=== PATIENT | male | born 1950 | race Caucasian/White ===

== ENCOUNTER 2024-10-16 06:23 | Day surgery (SDC) | payer OTHER, SELFPAY ==
[2024-10-16] VITALS (10 sets, daily range): BP systolic 118–146; BP diastolic 75–99; BMI 25.9
[2024-10-16] MEDS: LOW STRENGTH ASPIRIN 324 MG PO (07:17)
[2024-10-16 09:05] LABS: ACT-LR - POC 232 Seconds (116-155)
[2024-10-16 09:17] LABS: ACT-LR - POC 256 Seconds (116-155)
[2024-10-16 09:48] LABS: ACT-LR - POC 360 Seconds (116-155)
[2024-10-16] MEDS: NSS 1000 IV (10:56)
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
== END 2024-10-16 15:46 | disposition home or self-care (01) ==
LOC: CATH 06:23
PROVIDERS: ATTENDING PHYSICIAN Internal Medicine Interventional Cardiology; FAMILY PHYSICIAN Family Medicine; OTHER PHYSICIAN Internal Medicine Cardiovascular Disease
DX: I25.10 Atherosclerotic heart disease of native coronary artery without angina pectoris (principal); Z86.73 Personal history of transient ischemic attack (TIA), and cerebral infarction without residual deficits; E78.2 Mixed hyperlipidemia; I10 Essential (primary) hypertension; R55 Syncope and collapse; Z79.02 Long term (current) use of antithrombotics/antiplatelets; Z79.82 Long term (current) use of aspirin
CPT/HCPCS: 99152; 99153; 92978; 93799; 85347; 93458; C1753; C1769; C1894; Q9967

== ENCOUNTER 2024-11-21 10:55 | Day surgery (SDC) | payer OTHER, SELFPAY ==
[2024-11-21] VITALS (18 sets, daily range): BP systolic 106–153; BP diastolic 71–93; BMI 27.9
[2024-11-21 11:18] LABS: Hematocrit 42.8 % (39.0-52.0); Hemoglobin 14.3 g/dL (13.0-18.0); Mean Corp Hgb Conc. 33.4 g/dL (33.0-37.0); Mean Corpuscular Hgb 30.3 pg (27.0-31.0); Mean Corpuscular Volume 90.7 fL (80.0-94.0); Mean Platelet Volume 9.9 fL (7.4-10.4); Platelet Count 223 10^3/uL (130-400); Red Blood Cell Count 4.72 10^6/uL (4.70-6.10); Red Cell Dist. Width 12.6 % (11.5-14.5); White Blood Cell Count 7.1 10^3/uL (4.8-10.8)
[2024-11-21 11:26] LABS: Blood Urea Nitrogen 12 mg/dl (9-20); Calcium 9.9 mg/dl (8.4-10.2); Carbon Dioxide 28 mmol/L (22-30); Chloride 106 mmol/L (98-107); Glucose 111 mg/dl (70-99); Potassium 5.5 mmol/L (3.5-5.1); Sodium 140 mmol/L (135-145); eGFR > 60.00
--- NOTE | 2024-11-21 13:16 | W.PN.UPDATE ---
Update Note
Progress Note Update
Initially stopped by around 11 AM to concern the patient with his at bedside for scheduled PCI to mid RCA. The wanted me to give reassurance that all of the plaque from patient's arteries would be 'sucked using 'Roto-rooter' I proceeded
to explain to her that similar to our discussion after diagnostic heart catheterization that the obstructive stenosis did not appear significantly calcified so we would pursue this as we would any other case by initially ballooning to ensure we are
getting expansion of the lesion and proceed with stenting if no other unforeseeable issues, and usually reserved atherectomy for heavily calcified lesions to modify calcification as need be. Patient's got extremely annoyed at the fact that we
would not be using the Roto-Rooter and that I could not provide assurance that all of the plaque would be sucked out. She then questioned on why the nonobstructive lesion in the left circumflex was not being treated with PCI. I explained to her
again just like we did after the prior diagnostic heart catheterization that physiologic testing did not suggest obstructive stenosis and that we generally treat moderate CAD with medications with focus on optimizing cardiovascular risk factors
including using medications like statins to stabilize plaque. She became extremely concerned and claimed that they would not want higher doses of statins if need be given her understanding is that statins cause dementia and Alzheimer's. I
proceeded to explain to her that we do not have any evidence that statins increased risk for dementia or Alzheimer's. I explained the procedural risk and benefits in significant detail to them and also offered alternatives such as seeking a second
opinion elsewhere given she tells me that at prior institutions she was told that patient may need a 'roto-rooter' despite patient having his diagnostic heart catheterization here a few weeks ago at [facility]. I let them know with nursing
at bedside as a witness that we would allow them some time to think through everything before deciding to proceed and I strongly encouraged they seek a second opinion elsewhere given their concerns. I explained to them that my practice is not to
put patients at higher risk by using atherectomy when it may not be indicated.
I will cycle back after my next case to address any further questions or concerns and assess if they would like to obtain a second opinion elsewhere in which case we would cancel her case here today.
On separate note, patient has been on Plavix over the last 3 to 4 weeks and tolerating this well denying any new neurologic symptoms. No hematuria or hematochezia noted. He does bruise easily.
Outpatient chief business officer, Dr. Rafael Tidwell, also notified about all of the above.
Kathy Cordero MD, FACC, [facility]
[2024-11-21] MEDS: NSS 228 ML IV (13:47)
[2024-11-21] MEDS: PLAVIX 75 MG PO (13:48)
[2024-11-21] MEDS: LOW STRENGTH ASPIRIN 81 MG PO (13:49)
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
--- NOTE | 2024-11-21 18:43 | W.PN.UPDATE ---
Update Note
Progress Note Update
Pt seen post RCA PCI. Right radial cath site without ht/bleeding. OOB ambulating. Post EKG NSR w/RBBB and PVCs as before, 70s, no acute changes. Understands importance of uninterrupted DAPT w/asa, plavix. Cardiac rehab consulted. Followup with
Diann as scheduled. Home later today if cath site/tele remain stable.
[2024-11-22 08:00] LABS: ACT-LR - POC 347 Seconds (116-155)
== END 2024-11-21 19:32 | disposition home or self-care (01) ==
LOC: CATH 10:55
PROVIDERS: ATTENDING PHYSICIAN Internal Medicine Interventional Cardiology; FAMILY PHYSICIAN Family Medicine; OTHER PHYSICIAN Internal Medicine Cardiovascular Disease
DX: I25.10 Atherosclerotic heart disease of native coronary artery without angina pectoris (principal); E78.2 Mixed hyperlipidemia; I10 Essential (primary) hypertension; I49.3 Ventricular premature depolarization; I45.10 Unspecified right bundle-branch block; Z86.73 Personal history of transient ischemic attack (TIA), and cerebral infarction without residual deficits; Z79.02 Long term (current) use of antithrombotics/antiplatelets
CPT/HCPCS: 92978; 99152; 99153; 37215; 80048; 85027; 85347; 93005; 93452; 93458; C1725; C1769; C1874; C1894; C9600; Q9967

== ENCOUNTER 2024-12-29 03:19 | Inpatient (IN) | payer OTHER, SELFPAY ==
[2024-12-28 20:57] VITALS: BP 115/97
[2024-12-28 21:40] LABS: % Basophils 0.3 % (0-2); % Eosinophils 3.4 % (0-6); % Immature Granulocytes 0.3 % (0-0.5); % Lymphocytes 6.7 % (20.5-51.1); % Monocytes 8.7 % (1.7-9.3); % Neutrophils 80.6 % (42.2-75.2); Absolute Eosinophils 0.3 10^3/uL (0-0.7); Absolute Lymphocytes 0.6 10^3/uL (1.2-3.4); Absolute Monocytes 0.8 10^3/uL (0.1-0.6); Absolute Neutrophils 7.8 10^3/uL (1.4-6.5); Hematocrit 41.9 % (39.0-52.0); Hemoglobin 14.5 g/dL (13.0-18.0); Mean Corp Hgb Conc. 34.6 g/dL (33.0-37.0); Mean Corpuscular Hgb 30.5 pg (27.0-31.0); Mean Platelet Volume 9.6 fL (7.4-10.4); Nucleated Red Blood Cells % 0 % (-); Platelet Count 196 10^3/uL (130-400); Red Blood Cell Count 4.76 10^6/uL (4.70-6.10); Red Cell Dist. Width 12.4 % (11.5-14.5); White Blood Cell Count 9.6 10^3/uL (4.8-10.8)
[2024-12-28 21:55] LABS: Lactic Acid 1.3 mmol/L (0.7-2.0)
[2024-12-28 21:58] LABS: ALT (SGPT) 16 U/L (0-50); AST (SGOT) 23 U/L (17-59); Albumin 4.9 g/dl (3.5-5.0); Alkaline Phosphatase 78 U/L (38-126); Blood Urea Nitrogen 22 mg/dl (9-20); Calcium 10.3 mg/dl (8.4-10.2); Carbon Dioxide 27 mmol/L (22-30); Chloride 101 mmol/L (98-107); Glucose 142 mg/dl (70-99); Potassium 4.6 mmol/L (3.5-5.1); Sodium 137 mmol/L (135-145); Total Bilirubin 1.1 mg/dl (0.2-1.3); Total Protein 8.1 g/dl (6.3-8.2); eGFR > 60.00
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
[2024-12-28 22:25] VITALS: BMI 27.2
[2024-12-28 22:42] VITALS: BP 117/83
[2024-12-28 23:14] VITALS: BP 124/72
[2024-12-29] VITALS (8 sets, daily range): BP systolic 121–145; BP diastolic 79–95; PULSE 75; O2SAT 98; BMI 26.2
[2024-12-29 00:54] LABS: Urine Albumin 2+ (Neg - Trace); Urine Bilirubin 1+ (Negative); Urine Character Clear (Clear); Urine Color Amber; Urine Glucose Negative (Negative); Urine Ketone 3+ (Negative); Urine Leukocyte Negative (Negative); Urine Nitrite Negative (Negative); Urine Occult Blood 1+ (Negative); Urine Urobilinogen 1+ (Neg - 1+)
[2024-12-29 01:15] LABS: Urine Mucus Moderate
[2024-12-29 01:17] LABS: Urine Bacteria Few (Negative)
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
[2024-12-29 03:02] LABS: COVID-19 Antigen Negative (Negative)
[2024-12-29 04:20] LABS: Alcohol None Detected
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
[2024-12-29 08:38] LABS: Hematocrit 41.6 % (39.0-52.0); Hemoglobin 14.3 g/dL (13.0-18.0); Mean Corp Hgb Conc. 34.4 g/dL (33.0-37.0); Mean Corpuscular Hgb 30.5 pg (27.0-31.0); Mean Corpuscular Volume 88.7 fL (80.0-94.0); Mean Platelet Volume 10.4 fL (7.4-10.4); Platelet Count 196 10^3/uL (130-400); Red Blood Cell Count 4.69 10^6/uL (4.70-6.10); Red Cell Dist. Width 12.5 % (11.5-14.5); White Blood Cell Count 7.1 10^3/uL (4.8-10.8)
[2024-12-29] MEDS: LOW STRENGTH ASPIRIN 81 MG PO (08:41)
[2024-12-29] MEDS: TOPROL XL 25 MG PO (08:42)
[2024-12-29] MEDS: CRESTOR 20 MG PO (08:42)
[2024-12-29] MEDS: PLAVIX 75 MG PO (08:42)
[2024-12-29] MEDS: NEURONTIN 300 MG PO (08:42)
[2024-12-29 08:53] LABS: ALT (SGPT) 14 U/L (0-50); AST (SGOT) 24 U/L (17-59); Albumin 4.6 g/dl (3.5-5.0); Alkaline Phosphatase 77 U/L (38-126); Blood Urea Nitrogen 22 mg/dl (9-20); Calcium 9.7 mg/dl (8.4-10.2); Carbon Dioxide 24 mmol/L (22-30); Chloride 104 mmol/L (98-107); Direct Bilirubin 0.5 mg/dl (0.0-0.4); Estimated Creatinine Clearance 71 ml/min; Glucose 95 mg/dl (70-99); HDL Cholesterol 64 mg/dl; LDL Cholesterol, Calculated 60 mg/dl; Potassium 4.2 mmol/L (3.5-5.1); Sodium 138 mmol/L (135-145); Total Bilirubin 1.1 mg/dl (0.2-1.3); Total Cholesterol 143 mg/dl (50-199); Total Protein 7.4 g/dl (6.3-8.2); Triglyceride 95 mg/dl (10-149); Very Low Density Lipoprotein 19 mg/dl (0-30); eGFR > 60.00
[2024-12-29 10:25] LABS: Glycohemoglobin (HgbA1c) 5.6 % (4.0-5.6)
--- NOTE | 2024-12-29 11:47 | CM ---
Patient seen at bedside with on . Patient states that they have been in several hospitals and Patient indicated that patient currently has pending bills and she would like to talk to the billing office about payment plans.
Patient indicated that they were struggling with bills and CM indicated that information would be provided re; [email or web address]. Patient indicated that patient did not want help on alcohol resources and patient wanted to have his 2 shots per
night. Patient indicated that his PCP is Dr. LIND and that he uses the [facility] in [place] now for short term medications. Patient and live in a split level home and patient has no DME. CM will continue to follow for discharge planning
needs.
Plan; home with VN vs SNF pending medical treatment plan
[2024-12-29] MEDS: LIDOCAINE 4% PATCH 1 PATCH TOPICAL (13:23)
[2024-12-29] MEDS: NSS 1000 IV (13:24)
[2024-12-29] MEDS: ATIVAN 1 MG IV (13:52)
[2024-12-29 14:36] LABS: TSH 1.44 uIU/ml (0.47-4.68)
[2024-12-29 14:55] LABS: Vitamin B12 564 pg/ml (239-931)
[2024-12-29] MEDS: NSS (PRESERVATIVE FREE) 10 ML IV (16:36)
[2024-12-29] MEDS: PROTONIX IV 40 MG IV (16:37)
[2024-12-29] MEDS: MELATONIN PO ×2 (21:03→21:04)
[2024-12-29] MEDS: NEURONTIN PO ×2 (21:04)
[2024-12-30] VITALS (8 sets, daily range): BP systolic 107–139; BP diastolic 66–91; PULSE 88; O2SAT 96
[2024-12-30] MEDS: NSS 1000 IV (01:36)
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
[2024-12-30] MEDS: CRESTOR 20 MG PO (10:11)
[2024-12-30] MEDS: PLAVIX 75 MG PO (10:11)
[2024-12-30] MEDS: NEURONTIN 300 MG PO ×2 (10:11→20:10)
[2024-12-30] MEDS: NSS (PRESERVATIVE FREE) 10 ML IV (10:12)
[2024-12-30] MEDS: PROTONIX IV 40 MG IV (10:12)
[2024-12-30] MEDS: LOW STRENGTH ASPIRIN 81 MG PO (10:12)
[2024-12-30] MEDS: TOPROL XL 25 MG PO (10:12)
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
[2024-12-30] MEDS: LIDOCAINE 4% PATCH 1 PATCH TOPICAL (10:35)
--- NOTE | 2024-12-30 12:16 | PTOTSP ---
[employer] OUT CLERK Evaluations
Patient with elevated risk factors for dysphagia (i.e., acute left frontal leija radiata CVA; prior TBI/IVH, hx ACDF, missing many teeth) and presents with WFL-mild signs of dysphagia. Follow precautions below.
Patient with at least mild mixed aphasia with intact repetition, changes to pragmatics (i.e., decreased inhibition, tangential), and concern for at least a moderate cognitive impairment (i.e., executive function, naming, attention, working memory,
word fluency, delayed recall =0/5). See patient care note for details. It is unknown if patient is worse than baseline. However, patient endorsed increased difficulty.
Recommend:
1. IDDSI 7 Regular, Thin
2. Medications: as best tolerated; whole in puree as needed if coughing noted with thin liquids
3. General aspiration and reflux precautions
4. Brief dysphagia f/u to determine if instrumental assessment warranted
5. Cognitive linguistic tx at the acute care level and after D/C
[2024-12-30] MEDS: ULTRAM 50 MG PO (12:28)
[2024-12-30] MEDS: LIDOCAINE 4% PATCH 2 PATCH TOPICAL (12:38)
[2024-12-30] MEDS: NSS IV (13:33)
[2024-12-30] MEDS: BenGay-Like TOPICAL ×3 (18:15→21:11)
[2024-12-30] MEDS: MELATONIN 5 MG PO (21:11)
[2024-12-31] VITALS (8 sets, daily range): BP systolic 118–161; BP diastolic 74–92; PULSE 70–77; O2SAT 97–98
[2024-12-31 06:26] LABS: Hematocrit 38.4 % (39.0-52.0); Mean Corp Hgb Conc. 33.9 g/dL (33.0-37.0); Mean Corpuscular Volume 88.7 fL (80.0-94.0); Mean Platelet Volume 9.9 fL (7.4-10.4); Platelet Count 196 10^3/uL (130-400); Red Blood Cell Count 4.33 10^6/uL (4.70-6.10); Red Cell Dist. Width 12.2 % (11.5-14.5); White Blood Cell Count 6.4 10^3/uL (4.8-10.8)
[2024-12-31 06:54] LABS: Blood Urea Nitrogen 16 mg/dl (9-20); Calcium 9.3 mg/dl (8.4-10.2); Carbon Dioxide 25 mmol/L (22-30); Chloride 105 mmol/L (98-107); Estimated Creatinine Clearance 71 ml/min; Glucose 89 mg/dl (70-99); Phosphorus 3.6 mg/dl (2.5-4.5); Potassium 4.4 mmol/L (3.5-5.1); Sodium 137 mmol/L (135-145); eGFR > 60.00
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
--- NOTE | 2024-12-31 08:15 | CARDSERVLU ---
Echocardiogram with [facility]ason completed after protocol screening completed. Allergies verified.
Patent IV site: __Rt FA___
IV site flushed with 0.9% NaCl pre and post administration.
Diluted bolus method utilized to enhance visualization of ventricular queen.
Total volume given: __3.0_ mL
Patient tolerated all procedures well without complications.
[2024-12-31] MEDS: NSS (PRESERVATIVE FREE) 10 ML IV (09:39)
[2024-12-31] MEDS: FLOMAX 0.4 MG PO (09:39)
[2024-12-31] MEDS: NEURONTIN 300 MG PO ×2 (09:39→20:39)
[2024-12-31] MEDS: LOW STRENGTH ASPIRIN 81 MG PO (09:39)
[2024-12-31] MEDS: PROTONIX IV 40 MG IV (09:39)
[2024-12-31] MEDS: LIDOCAINE 4% PATCH 1 PATCH TOPICAL (09:40)
[2024-12-31] MEDS: PLAVIX 75 MG PO (09:40)
[2024-12-31] MEDS: CRESTOR 20 MG PO (09:40)
[2024-12-31] MEDS: LIDOCAINE 4% PATCH 2 PATCH TOPICAL (09:40)
[2024-12-31] MEDS: VITAMIN D3 (cholecalciferol) 10 MCG PO (09:41)
[2024-12-31] MEDS: TOPROL XL 25 MG PO (09:41)
[2024-12-31] MEDS: BenGay-Like TOPICAL ×2 (11:47→13:06)
[2024-12-31] MEDS: BenGay-Like 1 APPLIC TOPICAL ×2 (18:14→22:50)
[2024-12-31] MEDS: MELATONIN 10 MG PO (22:52)
[2025-01-01 03:05] VITALS: BP 122/78
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
[2025-01-01] MEDS: LIDOCAINE 4% PATCH 1 PATCH TOPICAL (09:02)
[2025-01-01] MEDS: LIDOCAINE 4% PATCH 2 PATCH TOPICAL (09:03)
[2025-01-01] MEDS: TOPROL XL 25 MG PO (09:05)
[2025-01-01] MEDS: PLAVIX 75 MG PO (09:05)
[2025-01-01] MEDS: LOW STRENGTH ASPIRIN 81 MG PO (09:05)
[2025-01-01] MEDS: VITAMIN D3 (cholecalciferol) 10 MCG PO (09:05)
[2025-01-01] MEDS: NEURONTIN 300 MG PO ×2 (09:06→19:58)
[2025-01-01] MEDS: CRESTOR 20 MG PO (09:06)
[2025-01-01] MEDS: FLOMAX 0.4 MG PO (09:06)
[2025-01-01] MEDS: PROTONIX 40 MG PO (09:06)
[2025-01-01] MEDS: BenGay-Like 1 APPLIC TOPICAL ×3 (09:08→21:57)
[2025-01-01 10:00] VITALS: BP 119/84
--- NOTE | 2025-01-01 10:56 | PTOTSP ---
Videofluoroscopic swallow study
WFL-mild oral/pharyngeal swallow. No aspiration. See patient care note for details.
Recommend:
1. IDDSI 7 Regular, Thin
2. Medications: as best tolerated
3. Aspiration and reflux precautions (i.e., upright to 90 degrees, avoid talking while eating/drinking, remain upright for 30 minutes after PO intake)
4. No further dysphagia tx warranted.
5. Cognitive linguistic tx at the acute care level and after D/C
[2025-01-01 14:31] VITALS: BP 112/73; PULSE 80; O2SAT 96
[2025-01-01 14:32] VITALS: BP 114/73; PULSE 80; O2SAT 96
[2025-01-01 15:30] VITALS: BP 107/74
[2025-01-01] MEDS: BenGay-Like TOPICAL (16:56)
[2025-01-01] MEDS: MELATONIN 10 MG PO (21:55)
[2025-01-01 23:00] VITALS: BP 113/76
[2025-01-02 07:30] VITALS: BP 116/70
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
[2025-01-02] MEDS: LOW STRENGTH ASPIRIN 81 MG PO (08:58)
[2025-01-02] MEDS: PROTONIX 40 MG PO (08:58)
[2025-01-02] MEDS: VITAMIN D3 (cholecalciferol) 10 MCG PO (08:58)
[2025-01-02] MEDS: PLAVIX 75 MG PO (08:58)
[2025-01-02] MEDS: CRESTOR 20 MG PO (08:58)
[2025-01-02] MEDS: FLOMAX 0.4 MG PO (08:58)
[2025-01-02] MEDS: TOPROL XL 25 MG PO (08:58)
[2025-01-02] MEDS: NEURONTIN 300 MG PO ×2 (08:58→21:42)
[2025-01-02] MEDS: LIDOCAINE 4% PATCH 2 PATCH TOPICAL (09:01)
[2025-01-02] MEDS: LIDOCAINE 4% PATCH 1 PATCH TOPICAL (09:01)
[2025-01-02] MEDS: BenGay-Like 1 APPLIC TOPICAL ×4 (09:02→21:44)
[2025-01-02 10:56] VITALS: BP 119/75; PULSE 74; O2SAT 97
--- NOTE | 2025-01-02 11:21 | CM ---
CM spoke with pt's on 12/31/2024. She is requesting SNF admission; referrals sent to [facility] and [facility]. [facility] will accept pending bed availability. [facility] has not looked at the referral yet, so
undetermined if that is an option, however [facility] is the preferred location due to proximity to home.
Call placed to Stefanie with [facility] and left asking for response for bed availability.
Plan: CM following for SNF admission; will need authorization once SNF bed identified.
[2025-01-02 16:00] VITALS: BP 114/72
[2025-01-02 16:16] VITALS: BP 112/78; PULSE 72; O2SAT 97
[2025-01-02] MEDS: MELATONIN 10 MG PO (21:42)
[2025-01-02 23:40] VITALS: BP 98/60
[2025-01-03 07:30] VITALS: BP 99/71
[2025-01-03] MEDS: CRESTOR 20 MG PO (08:02)
[2025-01-03] MEDS: LOW STRENGTH ASPIRIN 81 MG PO (08:02)
[2025-01-03] MEDS: NEURONTIN 300 MG PO ×2 (08:02→19:09)
[2025-01-03] MEDS: PROTONIX 40 MG PO (08:02)
[2025-01-03] MEDS: VITAMIN D3 (cholecalciferol) 10 MCG PO (08:02)
[2025-01-03] MEDS: FLOMAX 0.4 MG PO (08:02)
[2025-01-03] MEDS: PLAVIX 75 MG PO (08:02)
[2025-01-03] MEDS: LIDOCAINE 4% PATCH 1 PATCH TOPICAL (08:03)
[2025-01-03] MEDS: LIDOCAINE 4% PATCH 2 PATCH TOPICAL (08:03)
[2025-01-03] MEDS: BenGay-Like 1 APPLIC TOPICAL ×3 (08:10→21:16)
[2025-01-03] MEDS: MIRALAX 17 GRAMS PO (08:17)
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
[2025-01-03 10:06] VITALS: BP 114/70
[2025-01-03] MEDS: TOPROL XL 25 MG PO (10:07)
[2025-01-03 11:09] VITALS: BP 103/65; PULSE 72; O2SAT 100
[2025-01-03] MEDS: BenGay-Like TOPICAL (13:45)
--- NOTE | 2025-01-03 13:45 | CM ---
TC from [facility]
Auth for skilled rehab at [facility]
Reference# [id number]
start date 01/03/25, NRD 01/07/25
updates to Brennen Watt
[2025-01-03 15:55] VITALS: BP 139/80
[2025-01-03 20:10] VITALS: BP 121/78
[2025-01-03] MEDS: MELATONIN 10 MG PO (21:16)
[2025-01-03 23:47] VITALS: BP 150/82
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
[2025-01-04 07:35] VITALS: BP 96/75
[2025-01-04] MEDS: PROTONIX 40 MG PO (08:00)
[2025-01-04] MEDS: NEURONTIN 300 MG PO (08:00)
[2025-01-04] MEDS: PLAVIX 75 MG PO (08:00)
[2025-01-04] MEDS: VITAMIN D3 (cholecalciferol) 10 MCG PO (08:00)
[2025-01-04] MEDS: FLOMAX 0.4 MG PO (08:01)
[2025-01-04] MEDS: LOW STRENGTH ASPIRIN 81 MG PO (08:01)
[2025-01-04] MEDS: LIDOCAINE 4% PATCH 1 PATCH TOPICAL (08:04)
[2025-01-04] MEDS: CRESTOR 20 MG PO (08:14)
[2025-01-04] MEDS: BenGay-Like 1 APPLIC TOPICAL (08:14)
[2025-01-04] MEDS: LIDOCAINE 4% PATCH 2 PATCH TOPICAL (08:15)
[2025-01-04] MEDS: MIRALAX 17 GRAMS PO (08:18)
[2025-01-04 11:20] VITALS: BP 128/72
[2025-01-04] MEDS: TOPROL XL 25 MG PO (11:21)
[2025-01-04 12:17] VITALS: BP 127/73; PULSE 63
[2025-01-04 12:19] VITALS: BP 127/73
[2025-01-04] MEDS: BenGay-Like TOPICAL (13:39)
--- NOTE | 2025-01-04 14:00 | W.DCSUMMARY ---
Discharge Summary
Discharge Data
Date of Admission: 12/29/24
Date of Discharge: 01/04/25
-
Pending Results: No
Discharge Plan
-
Patient Disposition: Intermediate/SNF
Discharge Diagnosis/Procedures: Metabolic Encephalopathy
Stroke, small 7.5mm acute ischemic infarct Left Frontal Lobe
Suspected Alzheimer Dementia (as noted on CT and MRI imaging)
Lower Back pain
Coronary Artery Disease Recent Stent
Condition: Fair
Diet: Low Cholesterol and 2 Gram Sodium
Activity: As tolerated
Driving Restrictions: Not until seen by your Dr
Bathing Restrictions: None
Other Services: PT, OT and ST
Activity Restrictions/Additional Instructions:
Follow up with primary care provider in 1 week of discharge and, in two weeks of discharge, follow up with Cardiology and Neurology.
Cyclobenzaprine discontinued due to concerns exacerbating confusion dementia.
Percocet discontinued, has not required during stay.
Tylenol prescribed as needed for pain.
Lidocaine patches and bengay-like cream prescribed for musculoskeletal pain, left shoulder and lower back.
Please take medications as prescribed/recommended and follow up with primary care provider and/or other healthcare provider involved in your care for refills and/or further adjustment in your medication regimen as necessary.
Referrals:
Gerard Rodriguez MD [Active, Neurology] - in two weeks
Marisa Serrato DO [Family Provider, Family Practice] - in one week
Babatunde Tidwell DO [Active, Cardiology] - in two weeks
Prescriptions:
New
Analgesic [place] (m.salic-menth) 15-10 % Cream
1 applic topical QID Qty: 85 0RF
Rx Instructions:
Back pain
lidocaine 4 % Adhesive Patch,Medicated
1 patch topical DAILY Qty: 10 0RF
Rx Instructions:
Left Shoulder Pain
lidocaine 4 % Adhesive Patch,Medicated
2 patch topical DAILY Qty: 15 0RF
Rx Instructions:
lower back pain
acetaminophen 325 mg Tablet
650 mg PO Q4HPRN PRN (Reason: pain/LOUIS/Fever) Qty: 360 0RF
Continued
gabapentin 300 mg Capsule
300 mg PO BID
cholecalciferol (vitamin D3) [Vitamin D3] 10 mcg (400 unit) Tablet
10 mcg PO DAILY
melatonin 10 mg Tablet
10 mg PO HS
aspirin 81 mg tablet,chewable
81 mg PO DAILY Qty: 1 0RF
metoprolol succinate 25 mg tablet extended release 24 hr
25 mg PO DAILY Qty: 90 10RF
clopidogrel 75 mg Tablet
75 mg PO DAILY
tamsulosin [Flomax] 0.4 mg Capsule
0.4 mg PO DAILY
rosuvastatin [Crestor] 10 mg Tablet
10 mg PO DAILY
Discontinued
cyclobenzaprine 10 MG tablet
10 mg PO HS
oxycodone-acetaminophen 5-325 mg Tablet
1 tab PO Q6HPRN PRN (Reason: severe pains)
Discharge Orders:
Discharge Patient (As Directed); Ordered 01/04/25
Ordered By: Henrique Flores
Discharge Date and Time
Print Language: IRISH
[2025-01-04 15:35] VITALS: BP 127/71
== END 2025-01-04 17:53 | DRG 64 ==
LOC: 3 WEST ACU 03:19
PROVIDERS: Student in an Organized Health Care Education/Training Program; ADMITTING PHYSICIAN Internal Medicine; ATTENDING PHYSICIAN Internal Medicine; CONSULT PHYSICIAN Psychiatry & Neurology Neurology; EMERGENCY PHYSICIAN Emergency Medicine; FAMILY PHYSICIAN Family Medicine
DX: I63.9 Cerebral infarction, unspecified (principal); G93.41 Metabolic encephalopathy; I42.9 Cardiomyopathy, unspecified; G95.89 Other specified diseases of spinal cord; R47.81 Slurred speech; E78.00 Pure hypercholesterolemia, unspecified; I25.10 Atherosclerotic heart disease of native coronary artery without angina pectoris; I10 Essential (primary) hypertension; G30.9 Alzheimer's disease, unspecified; F02.80 Dementia in other diseases classified elsewhere, unspecified severity, without behavioral disturbance, psychotic disturbance, mood disturbance, and anxiety; G47.00 Insomnia, unspecified; M54.50 Low back pain, unspecified; G89.29 Other chronic pain; W10.8XXA Fall (on) (from) other stairs and steps, initial encounter; Y93.01 Activity, walking, marching and hiking; Y92.008 Other place in unspecified non-institutional (private) residence as the place of occurrence of the external cause; Z86.73 Personal history of transient ischemic attack (TIA), and cerebral infarction without residual deficits; Z95.5 Presence of coronary angioplasty implant and graft; Z98.1 Arthrodesis status; Z79.82 Long term (current) use of aspirin; Z79.02 Long term (current) use of antithrombotics/antiplatelets; Z11.52 Encounter for screening for COVID-19
CPT/HCPCS: 70450; 70496; 70498; 70551; 74230; 80048; 80053; 80061; 81003; 81015; 82077; 82248; 82607; 83036; 83605; 83735; 84100; 84443; 85025; 85027; 87040; 87502; 87811; 92507; 92523; 92526; 92610; 92611; 93005; 93306; 93880; 97112; 97116; 97163; 97167; 97530; 97535; 99285; Q9950; Q9967

== ENCOUNTER 2025-05-26 23:04 | Emergency (ER) | payer OTHER, SELFPAY ==
[2025-05-26 23:15] VITALS: BP 154/90
[2025-05-26 23:37] VITALS: BMI 29.8
[2025-05-26 23:38] VITALS: BP 134/79
[2025-05-27 00:27] VITALS: BP 147/86
--- NOTE | 2025-05-27 00:39 | ED.GENMED ---
History of Present Illness
General
Chief Complaint: Fall
Source: patient and spouse
Exam Limitations: none
Time Seen by Provider: 05/26/25 23:27
Nursing documentation reviewed up to this point in time: agreed with
History of Present Illness
History of Present Illness:
Note:
CHIEF COMPLAINT(S)
Fall with neck pain.
HISTORY OF PRESENT ILLNESS
The patient is a 74-year-old male who presented to the emergency department after a fall. The patient reports no loss of consciousness and denies experiencing a seizure. Following the fall, he experienced neck pain, prompting the application of a
cervical collar. The patient denies any numbness or tingling and reports no new or additional pains besides his usual discomfort. The indication for the cervical collar was related to concerns over a previous surgical intervention, suspected to be
performed by Dr. Rutherford in 2021. The patient was unsure about whether the previous surgical procedure might have contributed to the current symptoms. A computed tomography scan of the head and neck was planned to assess for potential injuries.
PHYSICAL EXAM
General: Alert, moderate acute distress. C-collar in place
Skin: Warm, dry.
Head: Normocephalic, atraumatic. (+) midline neck ttp
Neck: Supple, trachea midline.
Eye, Ears, Nose, Mouth, and Throat: Oral mucosa moist.
Cardiovascular: Normal peripheral perfusion, No edema.
Respiratory: Respirations are non-labored.
Gastrointestinal: Abdomen nondistended.
Musculoskeletal: Normal range of motion, normal strength.
Neurological: Alert and oriented to person, place, time, and situation, No focal neurological deficit observed.
Psychiatric: Cooperative, appropriate mood & affect.
PLAN
A computed tomography scan of the head and neck will be performed to evaluate for injuries related to the fall.
DIFFERENTIAL DIAGNOSIS
The Differential Diagnosis includes, in no particular order and is not limited to:
1. Cervical spine fracture dens and C1 arch
2. Cervical strain
3. Post-surgical complications
4. Concussion
5. Subdural hematoma
6. Epidural hematoma of the spine
7. Vestibular dysfunction
8. Vertebral artery dissection
9. Peripheral neuropathy
10. Osteoarthritic changes of the cervical spine
Disposition:
SUMMARY OF ENCOUNTER
The 74-year-old male patient presented to the emergency department following a fall. His imaging studies revealed a dens fracture, likely type 2, with associated pre-vertebral soft tissue swelling and mild angulation. Additionally, there were
comminuted anterior and posterior C1 arch fractures, spinal epidural hematoma measuring up to 7 millimeters in thickness, and mild canal stenosis at the level of C1. The patient denied experiencing any paresthesias. In consultation with Dr. Felipe
from the trauma surgery department at [facility], it was determined that the patient needed transfer for further management.
DISPOSITION
The patient is being transferred to [facility] via helicopter.
MANAGEMENT OF THE PATIENTS CARE WAS DISCUSSED WITH
Dr. Felipe, trauma surgery at [facility].
PLAN
The plan involves the transfer of the patient to [facility] for specialized care and management of the identified cervical spine injuries.
MEDICAL DECISION MAKING
- Number and Complexity of Problems Addressed: Chronic conditions affecting care. Differential diagnosis includes cervical spine fracture, cervical strain, post-surgical complications, concussion, subdural hematoma, epidural hematoma, vestibular
dysfunction, vertebral artery dissection, peripheral neuropathy, osteoarthritic changes of the cervical spine.
- Data:
Category 1
My independent interpretation of the CT scan revealed a dens fracture, likely type 2, with pre-vertebral soft tissue swelling, mild angulation, comminuted anterior and posterior C1 arch fractures, a spinal epidural hematoma measuring up to 7
millimeters, and mild canal stenosis at C1.
Category 3
Discussion of management occurred with Dr. Felipe, trauma surgery at [facility], who agreed to take over the patients care following transfer.
-Risk:
Consideration of Admission/Observation: The decision for transfer was based on the severity of the cervical spine injuries and potential for serious complications. The patients condition warrants specialized trauma care that can be provided at
[facility].
DIAGNOSIS
- Dens fracture, likely type 2 (ICD-10-CM: S12.100A)
- Spinal epidural hematoma (ICD-10-CM: G95.21)
- Comminuted C1 arch fractures (ICD-10-CM: S12.111)
Past History
Past History
ED Past Medical History: Other (High blood pressure, high cholesterol, CAD, intraventricular hemorrhage)
ED Past Surgical History: Orthopedic
Social History
Tobacco: Non-smoker
Alcohol: None
Drug: None
Personal:
Review of Systems
Review of Systems
Allergies reviewed?: Yes
All Other Systems: ROS reviewed and negative except as documented in HPI and ROS
Musculoskeletal: Reports other (Neck pain)
Phy Exam
General Physical Exam
General Presentation: moderate distress
General age: appears stated age
General Habitus: elderly
General Mental: alert
General Hydration: appears well hydrated
Neurological Exam
Neurological Exam: alert, oriented x3 and speech normal
Musculoskeletal Exam
Musculoskeletal Exam: neck pain and no edema
Skin Exam
Skin Exam: normal color and warm/dry
Psychiatric Exam
Psychiatric Exam: normal mood/affect
Course
Orders/Labs/Results
Orders:
Orders
05/27/25 00:01
CT Cervical Spine W/o Iv Contr Urgent
Reason For Exam: fall, neck pain, prev neck sx
CT Head W/o Iv Contrast Urgent
Reason For Exam: fall
05/27/25 00:37
Complete Blood Count/With Diff Urgent
Comprehensive Metabolic Panel Urgent
PT/INR [Prothrombin Time] Urgent
05/27/25 00:42
Morphine Sulfate 4 mg .ROUTE .STK-MED ONE
05/27/25 00:44
Morphine Sulfate 4 mg IV NOW STA
Abnormal Lab Results
05/27/25
00:37
RBC 4.45 L 10^6/uL
(4.70-6.10)
MCHC 32.8 L g/dL
(33.0-37.0)
Abs Immat Gran (auto) 0.1 H 10^3/uL
(0-0.05)
Absolute Neuts (auto) 8.6 H 10^3/uL
(1.4-6.5)
Absolute Lymphs (auto) 0.8 L 10^3/uL
(1.2-3.4)
Absolute Monos (auto) 0.9 H 10^3/uL
(0.1-0.6)
Immature Gran % 1.2 H %
(0-0.5)
Neutrophils % 81.6 H %
(42.2-75.2)
Lymphocytes % 7.5 L %
(20.5-51.1)
Glucose 114 H mg/dl
(70-99)
05/27/25 00:37
05/27/25 00:37
Vital Signs
Initial and Last Documented VS:
Initial Vital Signs
Temp Pulse Resp BP Pulse Ox
97.7 F 90 22 154/90 99
05/26/25 23:15 05/26/25 23:15 05/26/25 23:15 05/26/25 23:15 05/26/25 23:15
Last Documented Vital Signs
Temp Pulse Resp BP Pulse Ox
97.7 F 93 15 141/85 95
05/26/25 23:15 05/27/25 02:00 05/27/25 02:00 05/27/25 02:00 05/27/25 02:00
*Pulse Oximetry
SaO2: 97
Oxygen Mode of Delivery: Room air
Patient hypoxic: no
*Critical Care Note
Total Time (30-74mins, 75-104mins- exclusive of procedures): 38 (Critical care statement: A total of 38 minutes of critical care time was provided for this patient. This time is separate from time utilized to perform the aforementioned documented
procedures. Aggregate critical care time includes only time during which I was engaged in work directl)
Update Note
Update Note:
NAME: RODERICK OLIVARES
DATE OF EXAM: 05/27/2025
Patient No: [id number]
Physician: KAITLYN^LEONARD^Deedee
Date of : 1950
Past Medical History (entered by Technologist):
Reason For Exam (entered by Technologist):
Other Notes (entered by Technologist): Fell walking in his backyard. Cannot recall if he hit his head.
Prior sent
Additional Information (per [facility]):
CT HEAD AND CERVICAL
IMPRESSION:
HEAD:
No acute hemorrhage, herniation, or hydrocephalus. Chronic left MCA territory infarct. Moderate periventricular hypodensities, likely the sequela of small vessel ischemic disease.
No calvarial fracture.
The visualized paranasal sinuses and mastoid air cells are clear.
CERVICAL:
Base of dens fracture, likely type II, with prevertebral soft tissue swelling, and mild angulation. Comminuted anterior and posterior C1 arch fractures. Likely epidural hematoma measuring up to 7 mm in thickness, resulting in at least mild canal
stenosis at the level of C1.
Given configuration, recommend CTA head/neck to exclude vascular injury.
Unchanged fracture deformity of the T1 vertebral body. ACDF at C3-4 without evidence of complication.
No significant prevertebral edema.
Multilevel degenerative changes of the cervical spine. If there are persistent neurologic symptoms, consider MRI for further characterization.
Case discussed with Dr. Borja on May 27 2025 12:22AM ET
Case finalized on 05/27/25 00:27 EST
Ham Mccarthy M.D.
This report has been electronically signed and verified by the Radiologist whose name is printed above.
Discussed transfer to a trauma center. Family requested [facility]. They refused transfer to [place].
ED Attending Note
-
Portions of this chart may have been created with voice recognition software.� Occasional wrong word or��sound alike� substitutions may have occurred due to the inherent limitations of voice recognition software.
Discharge Plan
Departure
Patient Disposition: Acute Care Hospital
Date of Disposition: 05/27/25
Time of Disposition: 00:47
Condition: Serious
Discharge Problem:
Dens fracture, C1 cervical fracture, Spinal epidural hematoma
Prescriptions:
No Action
gabapentin 300 mg Capsule
300 mg PO BID
cholecalciferol (vitamin D3) [Vitamin D3] 10 mcg (400 unit) Tablet
10 mcg PO DAILY
melatonin 10 mg Tablet
10 mg PO HS
aspirin 81 mg tablet,chewable
81 mg PO DAILY Qty: 1 0RF
metoprolol succinate 25 mg tablet extended release 24 hr
25 mg PO DAILY Qty: 90 10RF
clopidogrel 75 mg Tablet
75 mg PO DAILY
tamsulosin [Flomax] 0.4 mg Capsule
0.4 mg PO DAILY
rosuvastatin [Crestor] 10 mg Tablet
10 mg PO DAILY
acetaminophen 325 mg Tablet
650 mg PO Q4HPRN PRN (Reason: pain/LOUIS/Fever) Qty: 360 0RF
cyclobenzaprine [Flexeril] 10 mg Tablet
10 mg PO HS
lidocaine 4 % adhesive patch,medicated
2 patch topical DAILY PRN (Reason: pain)
Rx Instructions:
lower back pain
lidocaine 4 % adhesive patch,medicated
1 patch topical DAILY PRN (Reason: pain)
Rx Instructions:
Left Shoulder Pain
Referrals:
Marisa Serrato DO [Family Provider, Family Practice]
Hospital Transfer
Other hospital: [facility]
I certify that the patient requires transfer: Yes
Discussed case with accepting physician: Matteo
Reason for transfer: higher level of care
Interventions
Interventions:
*Risk Screen - Suicide Last Done: 05/26/25 23:15
*General Assessment Last Done: 05/26/25 23:37
*Neglect/Abuse Screening Last Done: 05/26/25 23:15
*ED- Fall Risk Assessment Last Done: 05/26/25 23:37
*ED COVID-19 Vaccine History Last Done: 05/26/25 23:37
*ED Influenza Vaccine History Last Done: 05/26/25 23:37
*Nursing Disposition Last Done: 05/27/25 02:10
ED-Musculoskeletal Assessment Last Done: 05/26/25 23:55
ED- Neurological Assessment Last Done: 05/26/25 23:55
ED-Skin Assessment Last Done: 05/26/25 23:55
Discharge Date and Time
Discharge Date/Time: 05/27/25 02:10
Print Language: LITHUANIAN
[2025-05-27] MEDS: MORPHINE SULFATE 4 MG IV (00:44)
[2025-05-27 00:51] LABS: Hematocrit 40.9 % (39.0-52.0); Hemoglobin 13.4 g/dL (13.0-18.0); Mean Corp Hgb Conc. 32.8 g/dL (33.0-37.0); Mean Corpuscular Volume 91.9 fL (80.0-94.0); Nucleated Red Blood Cells % 0 % (-); Platelet Count 191 10^3/uL (130-400); Red Cell Dist. Width 13.0 % (11.5-14.5)
[2025-05-27 01:00] VITALS: BP 138/88
[2025-05-27 01:00] LABS: ALT (SGPT) 18 U/L (0-50); AST (SGOT) 31 U/L (17-59); Albumin 4.5 g/dl (3.5-5.0); Alkaline Phosphatase 80 U/L (38-126); Blood Urea Nitrogen 16 mg/dl (9-20); Calcium 9.6 mg/dl (8.4-10.2); Carbon Dioxide 28 mmol/L (22-30); Chloride 102 mmol/L (98-107); Estimated Creatinine Clearance 77 ml/min; Glucose 114 mg/dl (70-99); INR 1.01; PT 13.7 Sec (11.4-14.6); Potassium 4.5 mmol/L (3.5-5.1); Sodium 138 mmol/L (135-145); Total Protein 7.3 g/dl (6.3-8.2); eGFR > 60.00
[2025-05-27 02:00] VITALS: BP 141/85
== END 2025-05-27 02:10 | disposition short-term general hospital (02) ==
LOC: EMR 23:04
PROVIDERS: EMERGENCY PHYSICIAN Student in an Organized Health Care Education/Training Program; FAMILY PHYSICIAN Family Medicine
DX: S12.110A Anterior displaced Type II dens fracture, initial encounter for closed fracture (principal); S12.030A Displaced posterior arch fracture of first cervical vertebra, initial encounter for closed fracture; S14.101A Unspecified injury at C1 level of cervical spinal cord, initial encounter; W19.XXXA Unspecified fall, initial encounter; E78.00 Pure hypercholesterolemia, unspecified; I25.10 Atherosclerotic heart disease of native coronary artery without angina pectoris; Z86.73 Personal history of transient ischemic attack (TIA), and cerebral infarction without residual deficits
CPT/HCPCS: 99291; 96374; 70450; 72125; 80053; 85025; 85610